=== PATIENT | female | born 1980 | race Caucasian/White ===

== ENCOUNTER 2016-07-28 23:54 | Emergency (ER) | payer MEDICAID ==
[~2016-07-28 23:54] MED LIST: ADDE20XR PO; CIPR500T4 PO; PERC5TAB12 PO; PHENA200 PO
[2016-07-28 23:56] VITALS: BP 116/60; PULSE 104; RESP 20; TEMP 99.4; O2SAT 97
== END 2016-07-29 04:25 | disposition left against medical advice (07) ==
LOC: NED 23:54
DX: M54.9 Dorsalgia, unspecified (principal)
CPT/HCPCS: 99281

== ENCOUNTER 2017-10-18 06:08 | Observation (INO) | payer MEDICAID ==
[2017-10-18] VITALS (8 sets, daily range): BP systolic 93–123; BP diastolic 51–65; PULSE 82–110; RESP 16–19; TEMP 99.2–101.5; O2SAT 96–100
[~2017-10-18] VITALS: Ht 165.1 cm; Wt 70.0 kg
--- NOTE | 2017-10-18 08:39 | PD ---
HPI Chief Complaint: Abdominal Pain Time Seen by Provider: 08:17 Travel History International Travel<30 days: No Contact w/Intl Traveler<30days: No Traveled to known affect area: No History of Present Illness HPI The patient was seen and examined in the presence of the nurse. Patient complains of chest pain and abdominal pain and back pain. Very challenging to get a history from her. She is very panicky and tearful and histrionic. Symptoms have a duration of 3 hours. She started having pain in the right upper chest. Symptoms are pleuritic. Pain is worse with deep breath or position change. If she lies back it is worse. She also has pain in the right upper quadrant and right lower quadrant and right flank. She has a low-grade fever. No productive cough. Has minor runny nose. No alleviating factors. Symptoms are severe. Patient used to take Adderall but stopped 3 months ago. PFSH Past Medical History ADD: Yes Cancer: No Cardiovascular Problems: No Endocrine: No Genitourinary: Yes (UTI) Musculoskeletal: Yes Neurologic: No Reproductive: No Respiratory: No Tetanus Vaccination: Unknown Influenza Vaccination: No ?: Not LMP: 10/18/17 Past Surgical History Gynecologic Surgery: Yes (BREAST REDUCTION/CYST REMOVAL) Other Surgery: Yes (CYST REMOVED, BREAST REDUCTION) Social History Alcohol Use: No Tobacco Use: Yes (1/2PPD) Substance Use: No Allergies-Medications (Allergen,Severity, Reaction): Coded Allergies: No Known Allergies (Unverified , 07/29/16) Reported Meds & Prescriptions Reported Meds & Active Scripts Active Percocet (Oxycodone-Acetaminophen) 5-325 mg Tab 1 Tab PO Q6H PRN Levaquin (Levofloxacin) 750 Mg Tablet 750 Mg PO DAILY Review of Systems General / Constitutional: Positive: Fever Eyes: No: Visual changes HENT: No: Headaches Cardiovascular: Positive: Chest Pain or Discomfort Respiratory: Positive: Shortness of Breath Gastrointestinal: Positive: Abdominal Pain Genitourinary: No: Dysuria Musculoskeletal: Positive: Pain Skin: No Rash Neurologic: No: Weakness Psychiatric: No: Depression Endocrine: No: Polydipsia Hematologic/Lymphatic: No: Easy Bruising Physical Exam Narrative GENERAL: Well-nourished, well-developed patient tearful and anxious and in a lot of pain in chest and abdomen and back . SKIN: Focused skin assessment reveals no rash and nodules. Skin is Warm and dry. HEAD: Atraumatic. Normocephalic. EYES: Pupils equal and round. No scleral icterus. No injection or drainage. ENT: No nasal bleeding or discharge. Mucous membranes pink and moist. NECK: Trachea midline. No JVD. No meningeal signs. No midline tenderness. CARDIOVASCULAR: Regular rate and rhythm. No murmur appreciated. RESPIRATORY: No accessory muscle use. Clear to auscultation. Breath sounds equal bilaterally. GASTROINTESTINAL: Abdomen soft, has right upper quadrant and mild right lower quadrant tenderness. No rebound or guarding, nondistended. Hepatic and splenic margins not palpable. MUSCULOSKELETAL: No obvious deformities. No clubbing. No cyanosis. No edema. NEUROLOGICAL: Awake and alert. No obvious cranial nerve deficits. Motor grossly within normal limits. Normal speech. PSYCHIATRIC: Anxious mood and affect; insight and judgment normal. Data Data Last Documented VS Vital Signs Date Time Temp Pulse Resp B/P (MAP) Pulse Ox O2 Delivery O2 Flow Rate FiO2 10/18/17 12:35 98 18 108/65 (79) 98 Room Air 10/18/17 06:10 100.4 Orders Orders Electrocardiogram (10/18/17 07:47) Complete Blood Count With Diff (10/18/17 07:47) Ckmb (Isoenzyme) Profile (10/18/17 07:47) Troponin I (10/18/17 07:47) Iv Access Insert/Monitor (10/18/17 07:47) Ecg Monitoring (10/18/17 07:47) Oxygen Administration (10/18/17 07:47) Oximetry (10/18/17 07:47) Comprehensive Metabolic Panel (10/18/17 07:47) Urinalysis - C+S If Indicated (10/18/17 07:47) Ed Urine Pregnancytest Poc (10/18/17 07:47) Lipase (10/18/17 07:47) Chest, Single Ap (10/18/17 ) Prothrombin Time / Inr (Pt) (10/18/17 08:32) Sodium Chlor 0.9% 1000 Ml Inj (Ns 1000 M (10/18/17 08:45) Ct Pulmonary Angiogram (10/18/17 ) Ct Abd/Pel W Iv Contrast(Rout) (10/18/17 ) Ceftriaxone Inj (Rocephin Inj) (10/18/17 09:45) Sodium Chlor 0.9% 1000 Ml Inj (Ns 1000 M (10/18/17 09:45) CKMB (10/18/17 08:45) CKMB% (10/18/17 08:45) Labs Laboratory Tests Test 10/18/17 08:30 10/18/17 08:45 Urine Color YELLOW Urine Turbidity CLEAR Urine pH 6.0 Urine Specific [place] 1.041 Urine Protein 30 mg/dL Urine Glucose (UA) NEG mg/dL Urine Ketones TRACE mg/dL Urine Occult Blood SMALL Urine Nitrite NEG Urine Bilirubin NEG Urine Urobilinogen 2.0 MG/DL Urine Leukocyte Esterase TRACE Urine RBC 31 /hpf Urine WBC 1 /hpf Urine Squamous Epithelial Cells <1 /hpf Urine Mucus FEW /lpf Microscopic Urinalysis Comment CULT NOT INDICATED White Blood Count 17.7 TH/MM3 Red Blood Count 4.38 MIL/MM3 Hemoglobin 13.0 GM/DL Hematocrit 39.8 % Mean Corpuscular Volume 90.8 FL Mean Corpuscular Hemoglobin 29.8 PG Mean Corpuscular Hemoglobin Concent 32.8 % Red Cell Distribution Width 13.5 % Platelet Count 301 TH/MM3 Mean Platelet Volume 8.5 FL Neutrophils (%) (Auto) 90.3 % Lymphocytes (%) (Auto) 4.2 % Monocytes (%) (Auto) 5.2 % Eosinophils (%) (Auto) 0.1 % Basophils (%) (Auto) 0.2 % Neutrophils # (Auto) 16.0 TH/MM3 Lymphocytes # (Auto) 0.7 TH/MM3 Monocytes # (Auto) 0.9 TH/MM3 Eosinophils # (Auto) 0.0 TH/MM3 Basophils # (Auto) 0.0 TH/MM3 CBC Comment DIFF FINAL Differential Comment Prothrombin Time 10.7 SEC Prothromb Time International Ratio 1.1 RATIO Blood Urea Nitrogen 16 MG/DL Creatinine 0.89 MG/DL Random Glucose 104 MG/DL Total Protein 7.7 GM/DL Albumin 3.9 GM/DL Calcium Level 8.9 MG/DL Alkaline Phosphatase 55 U/L Aspartate Amino Transf (AST/SGOT) 19 U/L Alanine Aminotransferase (ALT/SGPT) 24 U/L Total Bilirubin 0.4 MG/DL Sodium Level 138 MEQ/L Potassium Level 2.7 MEQ/L Chloride Level 104 MEQ/L Carbon Dioxide Level 23.7 MEQ/L Anion Gap 10 MEQ/L Estimat Glomerular Filtration Rate 71 ML/MIN Total Creatine Kinase 160 U/L Creatine Kinase MB 1.9 NG/ML Troponin I LESS THAN 0.02 NG/ML Lipase 131 U/L [facility] Medical Decision Making Medical Screen Exam Complete: Yes Emergency Medical Condition: Yes Medical Record Reviewed: Yes Differential Diagnosis PE, pneumonia, pneumothorax, cholecystitis Narrative Course I have reviewed the patient's electronic medical record. Patient arrives with severe symptoms. It is challenging to even localize her chief area of problem given her rather diffuse swath of pain in her chest and abdomen and back. She is restless and uncooperative with exam. IV placed and labs sent Urine is negative I gave her a liter normal saline IV bolus I reviewed her chest x-ray which suggest possibility of right base infiltrate Extensive workup was done She has leukocytosis of 17,000 Metabolic profile reveals hypokalemia of 2.7 I am giving her a replacement dose CT of abdomen pelvis reveals some gallbladder wall thickening. CT pulmonary angiogram is negative for PE but does show a right lower lobe pneumonia Patient is very uncomfortable with pain in the right lower chest. There is no pneumothorax or PE. She is now having some hemoptysis She will require admission for IV antibiotics and further evaluation and electrolyte replacement Call is been placed to the medical residents to discuss Diagnosis Primary Impression: Right lower lobe pneumonia Qualified Codes: J18.1 - Lobar pneumonia, unspecified organism Additional Impressions: Acute hypokalemia Cough with hemoptysis Admitting Information Admitting Physician Requests: Admit Scripts Oxycodone-Acetaminophen (Percocet) 5-325 mg Tab 1 TAB PO Q6H Y for PAIN, #12 TAB 0 Refills Prov: Selvin Palmer MD 10/18/17 Levofloxacin (Levaquin) 750 Mg Tablet 750 MG PO DAILY for Infection, #10 TAB 0 Refills Prov: Selvin Palmer MD 10/18/17 Selvin Palmer MD October 18, 2017 08:39
[2017-10-18] MEDS ORDERED: SODIUM CHLOR 0.9% 1000 ML INJ 1,000 ML IV ONE ×2 (08:45→09:45)
--- NOTE | 2017-10-18 09:11 | RADRPT ---
EXAM DATE: 10/18/2017 8:41 AM EDT AGE/SEX: 37 years / Female INDICATIONS: Patient presents with severe right lower chest pain. CLINICAL DATA: This is the patient's initial encounter. Patient reports that signs and symptoms have been present for 1 day and indicates a pain score of 10/10. MEDICAL/SURGICAL HISTORY: None. None. COMPARISON: [facility] [place], CT PULMONARY ANGIOGRAM, 10/18/2017. . FINDINGS: Mild airspace disease in the right lower lung zone. Cardiomegaly zone contours are within normal limi ts. Bony thorax is intact. CONCLUSION: 1. Mild airspace disease in the right lower lung zone which may reflect atelectasis. Differential co nsiderations include developing pneumonia in the appropriate clinical setting. Electronically signed by: Dayron Pritchard MD 10/18/2017 9:10 AM EDT
[2017-10-18 09:22] LABS: BASOPHIL % 0.2 % (0.0-2.0); EOSINOPHIL % 0.1 % (0.0-4.0); HEMATOCRIT 39.8 % (35.0-46.0); LYMPH % 4.2 % (9.0-44.0); LYMPHOCYTE # 0.7 TH/MM3 (1.0-4.8); MEAN CELL VOLUME 90.8 FL (80.0-100.0); MEAN CORPUSCULAR HEMOGLOBIN 29.8 PG (27.0-34.0); MEAN CORPUSCULAR HGB CONC 32.8 % (32.0-36.0); MEAN PLATELET VOLUME 8.5 FL (7.0-11.0); MONO % 5.2 % (0.0-8.0); MONOCYTE # 0.9 TH/MM3 (0-0.9); NEUT % 90.3 % (16.0-70.0); PLATELET COUNT 301 TH/MM3 (150-450); RED BLOOD COUNT 4.38 MIL/MM3 (4.00-5.30); RED CELL DISTRIBUTION WIDTH 13.5 % (11.6-17.2); WHITE BLOOD COUNT 17.7 TH/MM3 (4.0-11.0)
[2017-10-18 09:29] LABS: BILIRUBIN, URINE NEG (NEG); BLOOD, URINE SMALL (NEG); GLUCOSE,URINE NEG (NEG); KETONE, URINE TRACE mg/dL (NEG); MUCUS URINE FEW /lpf (OCC); NITRITE,URINE NEG (NEG); SQUAMOUS EPITHELIAL CELL URINE <1 /hpf (0-5); URINE COLOR YELLOW (YELLW/STRAW); URINE LEUKOCYTE ESTERASE TRACE (NEG)
[2017-10-18 09:30] LABS: INTERNATIONAL NORMALIZED RATIO 1.1 RATIO; PROTHROMBIN TIME - PATIENT 10.7 SEC (9.8-11.6)
[2017-10-18] MEDS ORDERED: cefTRIAXone INJ 1,000 MG in SODIUM CHLORIDE 0.9% INJ 100 ML IV ONE (09:45)
[2017-10-18 09:52] LABS: ALBUMIN 3.9 GM/DL (3.4-5.0); ALKALINE PHOSPHATASE 55 U/L (45-117); ALT (GPT) 24 U/L (10-53); AST (GOT) 19 U/L (15-37); BICARBONATE 23.7 MEQ/L (21.0-32.0); BLOOD UREA NITROGEN 16 MG/DL (7-18); CALCIUM 8.9 MG/DL (8.5-10.1); CHLORIDE 104 MEQ/L (98-107); CREATININE 0.89 MG/DL (0.50-1.00); GLOMERULAR FILTRATION RATE 71 ML/MIN (>89); GLUCOSE,RANDOM 104 MG/DL (74-106); SODIUM (NA) 138 MEQ/L (136-145); TOTAL BILIRUBIN ADULT 0.4 MG/DL (0.2-1.0); TOTAL PROTEIN 7.7 GM/DL (6.4-8.2); TROPONIN I LESS THAN 0.02 NG/ML (0.02-0.05)
[2017-10-18] MEDS ORDERED: IOHEXOL 350 MG/ML 10 ML VIAL (for RAD DIAG) IVCONTRAST ONE (10:05)
--- NOTE | 2017-10-18 12:00 | RADRPT ---
EXAM DATE: 10/18/2017 11:42 AM EDT AGE/SEX: 37 years / Female INDICATIONS: Right sided chest pain. CLINICAL DATA: This is the patient's initial encounter. Patient reports that signs and symptoms have been present for 1 day and indicates a pain score of 4/10. MEDICAL/SURGICAL HISTORY: None. Breast reduction None. RADIATION DOSE: 17.38 CTDI (mGy) COMPARISON: No prior [place] exams available for comparison. TECHNIQUE: Volumetric scanning was performed using a multi-row detector CT scanner during bolus infu lucretia of 74 ml Omnipaque 350 (iohexol) nonionic water-soluble contrast as a single exam dose. The pilar a was post processed with a variety of visualization algorithms including full volume maximum intensi ty projection and sliding thin slab reformation. Using automated exposure control and adjustment of the mA and/or kV according to patient size, radiation dose was kept as low as reasonably achievable t o obtain optimal diagnostic quality images. FINDINGS: Pulmonary Arteries: No filling defects are seen in the pulmonary arteries out to the subsegmental ve ssels. The left and right pulmonary arteries are normal in diameter. Lung: Pneumonia in the posterior right lung base. Effusion: None. Mediastinum: No evidence of mediastinal or hilar adenopathy. Other: The axilla is unremarkable. CONCLUSION: Right lower lobe pneumonia. No evidence of pulmonary embolism Electronically signed by: Robert Garcia MD 10/18/2017 11:59 AM EDT
--- NOTE | 2017-10-18 12:03 | RADRPT ---
EXAM DATE: 10/18/2017 11:52 AM EDT AGE/SEX: 37 years / Female INDICATIONS: Right sided abdomen pain. CLINICAL DATA: This is the patient's initial encounter. Patient reports that signs and symptoms have been present for 1 day and indicates a pain score of 4/10. MEDICAL/SURGICAL HISTORY: None. Breast reduction. None. ORAL CONTRAST: No oral contrast ingested. RADIATION DOSE: 11.11 CTDI (mGy) COMPARISON: No prior [place] exams available for comparison. TECHNIQUE: Multiple contiguous axial images were obtained through the abdomen and pelvis following b olus infusion of 74 ml Omnipaque 350 (iohexol) nonionic water-soluble contrast as a single exam dos e. No oral contrast ingested. Using automated exposure control and adjustment of the mA and/or kV ac cording to patient size, the radiation dose was kept as low as reasonably achievable to obtain optima l diagnostic quality images. FINDINGS: Lower Lungs: Pneumonia in the right lung base Liver: Mild periportal liver edema. No evidence of focal liver mass or biliary ductal dilatation. Mod erate gallbladder wall thickening. Spleen: Homogeneous density without enlargement. Pancreas: Unremarkable without mass or calcification. Kidneys: Normal in size and shape. No evidence of mass or hydronephrosis. Adrenal Glands: Unremarkable. Aorta: The aorta and proximal iliac vessels are grossly unremarkable without aneurysmal dilation. Bowel/Mesentery: The bowel loops are grossly unremarkable. The cecum and sigmoid colon have a normal configuration. Abdominal Wall: Intact. Retroperitoneum: No evidence of adenopathy in the retrocrural, para-aortic, or deep pelvic regions. Bladder: Contours are smooth. Reproductive Organs: No abnormal masses or calcifications seen. Inguinal: The inguinal region is unremarkable without evidence of adenopathy. Bony Structures: Unremarkable. CONCLUSION: Mild periportal liver edema and moderate gallbladder wall thickening. Electronically signed by: Robert Garcia MD 10/18/2017 12:02 PM EDT
[2017-10-18] MEDS ORDERED: LEVA750T9 PO (13:06)
[2017-10-18] MEDS ORDERED: PERC5TAB12 PO (13:07)
[2017-10-18] MEDS ORDERED: SODIUM CHLORIDE 0.9% FLUSH 10 ML FLUSH IV FLUSH PRN ×2 (14:00→15:00)
[2017-10-18] MEDS ORDERED: NS + KCL 20 MEQ INJ 1,000 ML IV SCH (14:48)
[2017-10-18] MEDS ORDERED: guaiFENesin/CODEINE SYRUP 200 MG/20 MG/10 ML CUP PO PRN (15:00)
[2017-10-18] MEDS ORDERED: ACETAMINOPHEN 325 MG TAB PO PRN (15:00)
[2017-10-18] MEDS: AZITHROMYCIN 250 MG TAB PO SCH (15:31)
[2017-10-18] MEDS: oxyCODONE/ACETAMINOPHEN 5 MG/325 MG TAB PO PRN ×2 (15:31→22:34)
[2017-10-18] MEDS: POTASSIUM CHLOR 20 MEQ PREMIX 100 ML IV SCH ×2 (15:32→17:33)
[2017-10-18] MEDS: SODIUM CHLOR 0.9% 1000 ML INJ 1,000 ML IV SCH ×2 (15:32→23:59)
[2017-10-18] MEDS ORDERED: POTASSIUM CHLORIDE 20 MEQ CONTROLLED RELEASE TAB PO ONE (16:00)
[2017-10-18] MEDS ORDERED: ENOXAPARIN SODIUM 40 MG/0.4 ML SYRINGE SQ SCH (16:00)
--- NOTE | 2017-10-18 16:09 | HHI.HP ---
[facility] Service Family Medicine Primary Care Physician Marilyn Solis MD Admission Diagnosis RLL pneumonia, hypokalemia Diagnoses: Chief Complaint: Chest pain International Travel<30 Days: No Contact w/Intl Traveler<30days: No Known Affected Area: No History of Present Illness Patient is a 37-year-old who presented to the ER with "right-sided chest pain that goes down her side." She describes 2/10 sharp pain that becomes 8/10 with deep breaths. Upon deep inhalation, the pain radiates from the right subcostal region up to the right shoulder, around to the back, and down the right abdomen to the hip. Patient reports cough, rhinorrhea, headache that began 1 week ago and started resolving a few days ago. Patient also reports that her 7-year-old child was sick yesterday with N/V and diarrhea, and she noted a sharp pain in her right subcostal region while cleaning up after him. Patient reports mild new onset hemoptysis with blood streaked sputum. Patient denies any exertional chest pain, palpitations, arm/neck/back/jaw/abdominal pain , diaphoresis, rash, stiff neck, night sweats, unintentional weight changes. (Abiodun Mendez MD R2) Review of Systems Constitutional: COMPLAINS OF: Fatigue, Fever, DENIES: Diaphoretic episodes, Weight gain, Weight loss, Chills, Night Sweats Endocrine: DENIES: Heat/cold intolerance, Polydipsia Eyes: DENIES: Blurred vision Ears, nose, mouth, throat: DENIES: Tinnitus, Hearing loss, Running Nose, Sinus Pain Respiratory: COMPLAINS OF: Cough, Sputum production, DENIES: Shortness of breath Cardiovascular: COMPLAINS OF: Chest pain, DENIES: Palpitations, Syncope, Dyspnea on Exertion, Lower Extremity Edema, Orthopnea, Claudication Gastrointestinal: DENIES: Abdominal pain, Black stools, Bloody stools, Constipation, Diarrhea, Nausea, Vomiting, Difficulty Swallowing, Anorexia Genitourinary: DENIES: Abnormal vaginal bleeding, Dyspareunia, Hematuria, Dysuria Musculoskeletal: DENIES: Back pain, Neck pain Integumentary: DENIES: Pruritus, Rash Hematologic/lymphatic: DENIES: Lymphadenopathy Neurologic: DENIES: Paresthesias Other Denies fever or chills No polyuria, polydipsia Denies vision changes, eye pain, hearing changes, rhinorrhea, sore throat No palpitations No abdominal pain Denies constipation, diarrhea, nausea, vomiting, black or bloody stools No dysuria, hematuria Denies muscle/joint pain, weakness, headache No rashes, itching Day 4 of menstrual cycle. Reports regular 28 day cycle with moderate/heavy flow , and significant cramping pains which are typical for her. 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 OBGYN hx: 3 uncomplicated vaginal deliveries Past Surgical History Breast reduction 1998 cyst removal Reported Medications Reported Meds & Active Scripts Active Percocet (Oxycodone-Acetaminophen) 5-325 mg Tab 1 Tab PO Q6H PRN Levaquin (Levofloxacin) 750 Mg Tablet 750 Mg PO DAILY (Abiodun Mendez MD R2) Allergies: Coded Allergies: No Known Allergies (Unverified Allergy, Unknown, 10/18/17) Active Ordered Medications Current Medications Medications (Trade) Dose Ordered Sig/Lizbet Route Start Time Stop Time Status Last Admin (NS Flush) 2 ml UNSCH PRN IV FLUSH 10/18/17 14:00 (NS Flush) 2 ml BID IV FLUSH 10/18/17 21:00 Ceftriaxone Sodium 1000 mg/ Sodium Chloride 100 ml @ 200 mls/hr Q24H IV 10/19/17 10:00 (Tylenol) 650 mg Q4H PRN PO 10/18/17 15:00 (Robitussin Ac 200-20 Mg/10 ml Liq) 10 ml Q4H PRN PO 10/18/17 15:00 (Lovenox Inj) 40 mg Q24H SQ 10/18/17 16:00 10/18/17 15:32 (Zithromax) 500 mg DAILY PO 10/18/17 15:00 10/18/17 15:31 Potassium Chloride 100 ml @ 50 mls/hr Q2H IV 10/18/17 16:00 10/18/17 19:59 10/18/17 15:32 Sodium Chloride 1,000 ml @ 125 mls/hr Q8H IV 10/18/17 15:00 10/18/17 15:32 (Percocet 5-325 Mg) 1 tab Q6H PRN PO 10/18/17 15:00 10/18/17 15:31 Family History CVD, HTN, DM Social History smokes 3/4 of a ppd started at 12 yo, 19 pack year smoking history and previous marijuana use Currently works for [employer] Denies alcohol use, illict drug use (Abiodun Mendez MD R2) Physical Exam Vital Signs Vital Signs Date Time Temp Pulse Resp B/P (MAP) Pulse Ox O2 Delivery O2 Flow Rate FiO2 10/18/17 15:25 10/18/17 12:35 98 18 108/65 (79) 98 Room Air 10/18/17 11:00 110 19 109/55 (73) 96 Room Air 10/18/17 09:41 109 123/58 (79) 10/18/17 09:20 98 Room Air 10/18/17 09:20 98 Room Air 10/18/17 06:10 100.4 99 16 105/51 (69) 100 Physical Exam GENERAL: This is a well-nourished, well-developed patient, who appears tired but in no acute distress SKIN: Appears pale, no rashes, ecchymoses or lesions. Warm and dry. HEAD: Atraumatic. Normocephalic. No temporal or scalp tenderness. EYES: Pupils equal round and reactive. Extraocular motions intact. No scleral icterus. No injection or drainage. ENT: Nose without bleeding, purulent drainage or septal hematoma. Throat without erythema, tonsillar hypertrophy or exudate. Uvula midline. Airway patent. NECK: Trachea midline. No lymphadenopathy. Supple, nontender, no meningeal signs. CARDIOVASCULAR: Borderline tachycardic rate and rhythm without murmurs, gallops , or rubs. RESPIRATORY: Breath sounds decreased bilaterally. GASTROINTESTINAL: Abdomen soft, non-tender, nondistended. No guarding. MUSCULOSKELETAL: Extremities without clubbing, cyanosis, or edema. No joint tenderness, effusion, or edema noted. NEUROLOGICAL: Awake and alert. Cranial nerves II through XII grossly intact. Motor and sensory grossly within normal limits. Normal speech. Laboratory Laboratory Tests Test 10/18/17 08:30 10/18/17 08:45 Urine Color YELLOW Urine Turbidity CLEAR Urine pH 6.0 Urine Specific [place] 1.041 Urine Protein 30 Urine Glucose (UA) NEG Urine Ketones TRACE Urine Occult Blood SMALL Urine Nitrite NEG Urine Bilirubin NEG Urine Urobilinogen 2.0 Urine Leukocyte Esterase TRACE Urine RBC 31 Urine WBC 1 Urine Squamous Epithelial Cells <1 Urine Mucus FEW Microscopic Urinalysis Comment CULT NOT INDICATED White Blood Count 17.7 Red Blood Count 4.38 Hemoglobin 13.0 Hematocrit 39.8 Mean Corpuscular Volume 90.8 Mean Corpuscular Hemoglobin 29.8 Mean Corpuscular Hemoglobin Concent 32.8 Red Cell Distribution Width 13.5 Platelet Count 301 Mean Platelet Volume 8.5 Neutrophils (%) (Auto) 90.3 Lymphocytes (%) (Auto) 4.2 Monocytes (%) (Auto) 5.2 Eosinophils (%) (Auto) 0.1 Basophils (%) (Auto) 0.2 Neutrophils # (Auto) 16.0 Lymphocytes # (Auto) 0.7 Monocytes # (Auto) 0.9 Eosinophils # (Auto) 0.0 Basophils # (Auto) 0.0 CBC Comment DIFF FINAL Differential Comment Prothrombin Time 10.7 Prothromb Time International Ratio 1.1 Blood Urea Nitrogen 16 Creatinine 0.89 Random Glucose 104 Total Protein 7.7 Albumin 3.9 Calcium Level 8.9 Alkaline Phosphatase 55 Aspartate Amino Transf (AST/SGOT) 19 Alanine Aminotransferase (ALT/SGPT) 24 Total Bilirubin 0.4 Sodium Level 138 Potassium Level 2.7 Chloride Level 104 Carbon Dioxide Level 23.7 Anion Gap 10 Estimat Glomerular Filtration Rate 71 Total Creatine Kinase 160 Creatine Kinase MB 1.9 Troponin I LESS THAN 0.02 Lipase 131 Date/Time Source Procedure Growth Status 10/18/17 08:30 Urine Clean Catch Legionella Antigen Pending Received 10/18/17 08:30 Urine Clean Catch Streptococcus pneumoniae Antigen (M Pending Received (Abiodun Mendez MD R2) Result Diagram: 10/18/17 0845 10/18/17 0845 Imaging Last 72 hours Impressions Chest X-Ray 10/18/17 0000 Signed Impressions: CONCLUSION: 1. Mild airspace disease in the right lower lung zone which may reflect atelec tasis. Differential considerations include developing pneumonia in the appropri ate clinical setting. CT Angiography 10/18/17 0000 Signed Impressions: CONCLUSION: Right lower lobe pneumonia. No evidence of pulmonary embolism Abdomen/Pelvis CT 10/18/17 Signed Impressions: CONCLUSION: Mild periportal liver edema and moderate gallbladder wall thickening. Course Patient is a 37-year-old who presented to the ER with sharp, right-sided chest pain worse with deep inspiration which radiates to the shoulder and down her side. Current temperature is 100.[address] angiogram shows right lower lobe pneumonia with no evidence of pulmonary embolism. CMP shows hypokalemia. Given fluids and antibiotics in the ER. Transfer of care to [facility]. Continue management and observation. (Abiodnu Mendez MD R2) Caprini VTE Risk Assessment Caprini VTE Risk Assessment: No/Low Risk (score <= 1) Caprini Risk Assessment Model Point Value = 1 Point Value = 2 Point Value = 3 Point Value = 5 Age 41-60 Minor surgery BMI > 25 kg/m2 Swollen legs Varicose veins or History of unexplained or recurrent spontaneous Oral contraceptives or hormone replacement Sepsis (< 1 month) Serious lung disease, including pneumonia (< 1 month) Abnormal pulmonary function Acute myocardial infarction Congestive heart failure (< 1 month) History of inflammatory bowel disease Medical patient at bed rest Age 61-74 Arthroscopic surgery Major open surgery (> 45 min) Laparoscopic surgery (> 45 min) Malignancy Confined to bed (> 72 hours) Immobilizing plaster cast Central venous access Age >= 75 History of VTE Family history of VTE Factor V Leiden Prothrombin [id number] Lupus anticoagulant Anticardiolipin antibodies Elevated serum homocysteine Heparin-induced thrombocytopenia Other congenital or acquired thrombophilia Stroke (< 1 month) Elective arthroplasty Hip, pelvis, or leg fracture Acute spinal cord injury (< 1 month) Prophylaxis Regimen Total Risk Factor Score Risk Level Prophylaxis Regimen 0-1 Low Early ambulation 2 Moderate Order ONE of the following: *Sequential Compression Device (SCD) *Heparin 5000 units SQ BID 3-4 Higher Order ONE of the following medications: *Heparin 5000 units SQ TID *Enoxaparin/Lovenox 40 mg SQ daily (WT < 150 kg, CrCl > 30 mL/min) *Enoxaparin/Lovenox 30 mg SQ daily (WT < 150 kg, CrCl > 10-29 mL/min) *Enoxaparin/Lovenox 30 mg SQ BID (WT < 150 kg, CrCl > 30 mL/min) AND/OR *Sequential Compression Device (SCD) 5 or more Highest Order ONE of the following medications: *Heparin 5000 units SQ TID (Preferred with Epidurals) *Enoxaparin/Lovenox 40 mg SQ daily (WT < 150 kg, CrCl > 30 mL/min) *Enoxaparin/Lovenox 30 mg SQ daily (WT < 150 kg, CrCl > 10-29 mL/min) *Enoxaparin/Lovenox 30 mg SQ BID (WT < 150 kg, CrCl > 30 mL/min) AND *Sequential Compression Device (SCD) (Abiodun Mendez MD R2) Assessment and Plan Assessment and Plan Patient is a 37-year-old without any significant past medical history who presented to the ER with sharp, right-sided subcostal pleuritic pain. She has a one-week history of cold symptoms. Current temperature is 100.4 F. Labs showed hypokalemia and leukocytosis with left shift. Chest x-ray shows right lower lobe pneumonia. CT angiogram shows right lower lobe pneumonia with no evidence of pulmonary embolism. Been treated with IV fluids and antibiotic therapy. Code Status Full code Discussed Condition With Discussed plan with patient. Expressed understanding. (Abiodun Mendez MD R2) Attending Attestation Patient seen, examined, and discussed with Mary Mendez and Stu. I agree with assessment and management as documented and discussed with me. Corrected documentation: Disregard 2 midnight certification, as patient admitted under observation. At the time of my exam (~1615), pt in her hospital room. She reports cold symptoms x 1 week, then acute onset of symptoms as described in HPI. While in ER, diganosed with RLL pneumonia. On my exam, she is sleepy secondary to recent pain medication administration. Decreased breath sounds, especially at R base. No crackles, no wheezes. Maintaining sats on room air. Febrile to 101.5. Continue antibiotics as ordered by resident team. Encouraged pt to use I.S. and acapella. (Marissa Warren MD) Problem List: (1) Right lower lobe pneumonia ICD Codes: J18.1 - Lobar pneumonia, unspecified organism Status: Acute Plan: -IV fluids -Ceftriaxone 1 g IV daily -Azithromycin 500 mg p.o. daily -Follow blood cultures -Follow CBC -Cough syrup -Tylenol as needed for fever -Legionella urinary antigen, pneumococcal urinary antigen -Monitor vital signs, intake and output -Physical therapy consult for associated weakness -Oxygen as needed -Incentive spirometry, Acapella (2) Acute hypokalemia ICD Codes: E87.6 - Hypokalemia Status: Acute Plan: Potassium measured 2.7 -Potassium chloride 40 mEq IV -KCl 40 mEq p.o. once -We will likely need more potassium tomorrow -BMP daily (3) No contraindication to deep vein thrombosis (DVT) prophylaxis ICD Codes: Z78.9 - Other specified health status Plan: Lovenox 40 mg subcu daily (4) Nutrition, metabolism, and development symptoms ICD Codes: R63.8 - Other symptoms and signs concerning food and fluid intake Plan: Fluids: Normal saline IV Electrolyte: Monitor and replete Nutrition: Regular basic diet GI prophylaxis: Not currently indicated (Abiodun Mendez MD R2) Physician Certification 2 Midnight Certification Type: Admission for Inpatient Services Order for Inpatient Services The services are ordered in accordance with Medicare regulations or non- Medicare payer requirements, as applicable. In the case of services not specified as inpatient-only, they are appropriately provided as inpatient services in accordance with the 2-midnight benchmark. Estimated LOS (days): 2 2 days is the estimated time the patient will need to remain in the hospital, assuming treatment plan goals are met and no additional complications. Post-Hospital Plan: Home (Abiodun Mendez MD R2) Problem Qualifiers (1) Right lower lobe pneumonia: Qualified Codes: J18.1 - Lobar pneumonia, unspecified organism Abiodun Mendez MD R2 October 18, 2017 16:09 Marissa Warren MD October 18, 2017 21:02
[2017-10-18 16:12] LABS: MAGNESIUM 1.9 MG/DL (1.5-2.5)
--- NOTE | 2017-10-18 18:06 | EKG ---
Date Performed: 10/18/2017 Time Performed: 08:45:31 PTAGE: 37 years EKG: Sinus rhythm BORDERLINE RIGHT AXIS DEVIATION INCOMPLETE RIGHT BUNDLE BRANCH BLOCK BORDERLINE ECG NO PREVIOUS TRACING DOCTOR: Candelaria Freitas Interpretating Date/Time 10/18/2017 17:59:28
[2017-10-18] MEDS ORDERED: SODIUM CHLORIDE 0.9% FLUSH 10 ML FLUSH IV FLUSH SCH (21:00)
[2017-10-18] MEDS: SODIUM CHLORIDE 0.9% FLUSH 10 ML FLUSH IV FLUSH SCH (22:32)
[2017-10-19 04:30] VITALS: TEMP 99.1
[2017-10-19] MEDS: oxyCODONE/ACETAMINOPHEN 5 MG/325 MG TAB PO PRN ×2 (05:49→11:46)
[2017-10-19 07:21] LABS: BASOPHIL # 0.1 TH/MM3 (0-0.2); BASOPHIL % 0.3 % (0.0-2.0); EOSINOPHIL % 0.2 % (0.0-4.0); HEMATOCRIT 32.6 % (35.0-46.0); HEMOGLOBIN 10.7 GM/DL (11.6-15.3); LYMPH % 9.3 % (9.0-44.0); LYMPHOCYTE # 2.1 TH/MM3 (1.0-4.8); MEAN CELL VOLUME 90.3 FL (80.0-100.0); MEAN CORPUSCULAR HEMOGLOBIN 29.8 PG (27.0-34.0); MEAN PLATELET VOLUME 8.6 FL (7.0-11.0); MONO % 5.7 % (0.0-8.0); MONOCYTE # 1.3 TH/MM3 (0-0.9); NEUT % 84.5 % (16.0-70.0); PLATELET COUNT 268 TH/MM3 (150-450); RED CELL DISTRIBUTION WIDTH 13.1 % (11.6-17.2); WHITE BLOOD COUNT 22.5 TH/MM3 (4.0-11.0)
--- NOTE | 2017-10-19 07:46 | HHI.FPPN ---
Subjective Remarks No acute issues overnight. Vitals are stable, patient remains afebrile. Her last fever was up to 101.5 yesterday evening. She is feeling better overall today. She continues to have pain with deep inspiration, but states that the pain is better today than yesterday. She continues to have an occasional cough, but this has also improved. She denies any chest pain, fever, chills, nausea, vomiting, or shortness of breath. She feels ready to go home today. (Shanta Boles MD R3) Objective Vitals Vital Signs Date Time Temp Pulse Resp B/P (MAP) Pulse Ox O2 Delivery O2 Flow Rate FiO2 10/19/17 04:30 99.1 10/18/17 23:30 99.2 82 18 99 10/18/17 17:20 99.3 85 18 93/53 (66) 98 10/18/17 16:21 101.5 97 18 106/52 (70) 97 10/18/17 15:25 10/18/17 12:35 98 18 108/65 (79) 98 Room Air 10/18/17 11:00 110 19 109/55 (73) 96 Room Air 10/18/17 09:41 109 123/58 (79) 10/18/17 09:20 98 Room Air 10/18/17 09:20 98 Room Air I/O 10/18/17 10/18/17 10/18/17 10/19/17 10/19/17 10/19/17 07:00 15:00 23:00 07:00 15:00 23:00 Intake Total 500 ml 540 ml Balance 500 ml 540 ml Intake Oral 500 ml 540 ml # Voids 4 # Bowel Movements 0 (Shanta Boles MD R3) Result Diagram: 10/19/17 0609 10/18/17 0845 Imaging Last Impressions Chest X-Ray 10/18/17 0000 Signed Impressions: CONCLUSION: 1. Mild airspace disease in the right lower lung zone which may reflect atelec tasis. Differential considerations include developing pneumonia in the appropri ate clinical setting. CT Angiography 10/18/17 0000 Signed Impressions: CONCLUSION: Right lower lobe pneumonia. No evidence of pulmonary embolism Abdomen/Pelvis CT 10/18/17 0000 Signed Impressions: CONCLUSION: Mild periportal liver edema and moderate gallbladder wall thickening. Objective Remarks GENERAL: Well-nourished, well-developed female in no acute distress. SKIN: Warm and dry. HEAD: Normocephalic. EYES: No scleral icterus. No injection or drainage. NECK: Supple, trachea midline. No JVD or lymphadenopathy. CARDIOVASCULAR: Regular rate and rhythm without murmurs, gallops, or rubs. RESPIRATORY: CTA bilaterally. Slightly diminished breath sounds in right lower lobe. No wheezing. No accessory muscle use. GASTROINTESTINAL: Abdomen soft, non-tender, nondistended. MUSCULOSKELETAL: No cyanosis, or edema. BACK: Nontender without obvious deformity. (Shanta Boles MD R3) A/P Assessment and Plan Patient is a 37-year-old without any significant past medical history who presented to the ER with sharp, right-sided subcostal pleuritic pain and was admitted for right lower lobe pneumonia. Discharge Planning Anticipate discharge home today. (Shanta Boles MD R3) Attending Attestation Patient seen, examined, and discussed with resident team. I agree with assessment and management as documented and discussed with me. Pt reports breathing and right sided chest wall pain is improved. She feels ready for discharge today. (Marissa Warren MD) Problem List: (1) Right lower lobe pneumonia ICD Codes: J18.1 - Lobar pneumonia, unspecified organism Status: Acute Plan: Leukocytosis trending up, however clinically improving - DC V fluids -Ceftriaxone 1 g IV daily (started 10/18) -Azithromycin 500 mg p.o. daily (started 10/18) -Will transition to oral antibiotics today -Follow blood cultures -Follow CBC -Cough syrup PRN -Tylenol as needed for fever -Legionella urinary antigen, pneumococcal urinary antigen -Monitor vital signs, intake and output -Physical therapy consult for associated weakness -Oxygen as needed -Incentive spirometry, Acapella (2) Acute hypokalemia ICD Codes: E87.6 - Hypokalemia Status: Resolved Plan: Potassium measured 2.7 on admission, now wnl at 3.8 s/p K replacement (3) No contraindication to deep vein thrombosis (DVT) prophylaxis ICD Codes: Z78.9 - Other specified health status Status: Acute Plan: Lovenox 40 mg subcu daily (4) Nutrition, metabolism, and development symptoms ICD Codes: R63.8 - Other symptoms and signs concerning food and fluid intake Status: Acute Plan: Fluids: DC IV fluids Electrolyte: Monitor and replete Nutrition: Regular basic diet (Shanta Boles MD R3) Problem Qualifiers (1) Right lower lobe pneumonia: Qualified Codes: J18.1 - Lobar pneumonia, unspecified organism Shanta Boles MD R3 October 19, 2017 07:46 Marissa Warren MD October 19, 2017 10:57
[2017-10-19 07:58] LABS: BICARBONATE 23.2 MEQ/L (21.0-32.0); CREATININE 0.64 MG/DL (0.50-1.00)
[2017-10-19 08:00] VITALS: BP 92/53; PULSE 80; RESP 18; TEMP 99.1; O2SAT 99
[2017-10-19] MEDS ORDERED: AZIT250T3 PO (08:14)
[2017-10-19] MEDS ORDERED: AMOX500T PO (08:14)
[2017-10-19 08:15] VITALS: O2SAT 97
--- NOTE | 2017-10-19 08:15 | HHI.DCPOC ---
Discharge Care Plan Diagnosis: (1) Right lower lobe pneumonia Goals to Promote Your Health * To prevent worsening of your condition and complications * To maintain your health at the optimal level Directions to Meet Your Goals Take your medications as prescribed Follow your dietary instruction Follow activity as directed Keep your appointments as scheduled Take your immunizations and boosters as scheduled If your symptoms worsen call your PCP, if no PCP go to Urgent Care Center or Emergency Room Smoking is Dangerous to Your Health. Avoid second hand smoke Call the 24-hour hour crisis hotline for domestic abuse at Shanta Boles MD R3 October 19, 2017 08:15
[2017-10-19] MEDS ORDERED: AZITHROMYCIN 250 MG TAB PO SCH (09:00)
[2017-10-19] MEDS: AZITHROMYCIN 250 MG TAB PO SCH (09:04)
[2017-10-19] MEDS: SODIUM CHLORIDE 0.9% FLUSH 10 ML FLUSH IV FLUSH SCH (09:05)
[2017-10-19] MEDS ORDERED: cefTRIAXone INJ 1,000 MG in SODIUM CHLORIDE 0.9% INJ 100 ML IV SCH (10:00)
== END 2017-10-19 12:39 | disposition home or self-care (01) ==
LOC: NEPC 06:08 → NEDA 14:03 → INTOOBSV 14:03 → N06B 15:23
PROVIDERS: ADMIT Family Medicine; ATTEND Family Medicine
DX: J18.9 Pneumonia, unspecified organism (principal); R53.83 Other fatigue; G89.29 Other chronic pain; M54.5 Low back pain; F17.210 Nicotine dependence, cigarettes, uncomplicated; E87.6 Hypokalemia; R07.9 Chest pain, unspecified
CPT/HCPCS: 71045; 71275; 74177; 80048; 80053; 81001; 82550; 82552; 83690; 83735; 84484; 84703; 85025; 85610; 87040; 87449; 93005; 94150; 94667; 96361; 96374; 96375; 96376; 99285; G0378; J0696; J1650; J3480; J7030; Q9967